=== PATIENT | male | born 1960 | race Caucasian/White ===

== ENCOUNTER 2018-12-10 01:55 | Inpatient (IN) | payer OTHER ==
[2018-12-10] VITALS (19 sets, daily range): BP systolic 98–141; BP diastolic 51–86
[~2018-12-10] VITALS: Ht 182.9 cm; Wt 122.6 kg
--- NOTE | 2018-12-10 02:15 | NUR ---
DR GIBBONS AT BEDSIDE FOR RSI-BRONCH. SEE E-MAR FOR MEDICATIONS GIVEN.
[2018-12-10 02:30] LABS: HEMATOCRIT 29.5 % (42.0-52.0); HEMOGLOBIN 9.4 gm/dL (14.0-18.0); MCH 31.5 pg (26.0-34.0); MCHC 31.8 g/dL (28.0-37.0); MCV 99.2 fL (80.0-100.0); PLATELET COUNT 341 thou/uL (150-400); RBC 2.97 mil/uL (4.50-6.00); RDW 17.3 % (10.5-14.5); WBC 26.5 thou/uL (4.0-11.0)
[2018-12-10 02:35] LABS: ANION GAP 7 mmol/L (7-16); BUN 20 mg/dL (7-18); CHLORIDE 102 mmol/L (98-107); CO2 29 mmol/L (21-32); CREATININE 0.6 mg/dL (0.7-1.3); GLUCOSE 195 mg/dL (74-106); POTASSIUM 5.1 mmol/L (3.5-5.1); SODIUM 138 mmol/L (136-145)
[2018-12-10 02:39] LABS: APTT 32.2 Seconds (24.5-32.8); INR 1.1; PROTIME 11.2 Seconds (9.3-11.4)
[2018-12-10 02:46] LABS: ALBUMIN 1.9 g/dL (3.4-5.0); MAGNESIUM 2.1 mg/dL (1.8-2.4); SGOT 28 U/L (15-37); SGPT 24 U/L (30-65); TOTAL BILIRUBIN 0.3 mg/dL (<0.1-1.0); TOTAL PROTEIN 7.6 g/dL (6.4-8.2); TROPONIN-I <0.06 ng/mL (<0.06)
[2018-12-10 03:02] LABS: ABSOLUTE NEUTROPHILS 20.9 thou/uL (1.4-8.2); NUCLEATED RBCS 1 /100WBC
[2018-12-10 03:04] LABS: ANISOCYTOSIS 1+; PLATELET ESTIMATE NORMAL; POLYCHROMASIA 2+
[2018-12-10 03:19] LABS: BE(vivo) -2.8 mmol/L (-2 to +3); HCO3 26.3 mmol/L (22.0-26.0); PCO2 70.7 mmHg (35.0-45.0); PO2 193.7 mmHg (80.0-100.0); pH 7.188 (7.360-7.450)
--- NOTE | 2018-12-10 06:15 | NUR ---
PATIENT ARRIVED TO THE FLOOR FROM THE ED AT APPROXIMATELY 0445. PATIENT NOTED TO BE SINUS TACHYCARDIC. PATIENT ON THE VENT VIA TRACH COLLAR WITH FIO2 AT 80% PATIENT IS AWAKE AND ORIENTED TO SELF AND PLACE AND TRIES TO CONVERSE WITH THIS RN. PATIENT NOTED TO HAVE A CVC IN THE RIGHT SUBCLAVIAN THAT WAS PRESENT UPON ADMISSION. THE DRESSING IS FILLED WITH BLOOD. ADDITIONALLY, THE TRACH (WHICH IS NEWLY PLACED) IS ALSO VERY BLOODY. ADMISSION ASSESSMENT COMPLETED BUT WAS UNABLE TO COMPLETE THE MED RECONCILIATION, ALLERGIES, AND MEDICAL HISTORY D/T NO FAMILY PRESENT AT BEDSIDE AND PATIENT UNABLE TO TALK.
[2018-12-10 07:01] LABS: BE(vivo) 5.9 mmol/L (-2 to +3); HCO3 30.7 mmol/L (22.0-26.0); PCO2 45.7 mmHg (35.0-45.0); PO2 115.4 mmHg (80.0-100.0); pH 7.445 (7.360-7.450); sO2 98.3 % (92.0-98.0)
[2018-12-10] MEDS ORDERED: ASPIR 8181 MG PER TUBE (07:24)
[2018-12-10] MEDS ORDERED: LIPITOR 20 MG T20 M1 PO (07:25)
[2018-12-10] MEDS ORDERED: COREG25 MG PO (07:26)
[2018-12-10] MEDS ORDERED: CLONIDINE0.1 PO (07:27)
[2018-12-10] MEDS ORDERED: DILTIAZEM HCL90 MG PO (07:29)
[2018-12-10] MEDS ORDERED: ENOXAPARIN150 MG/11 SUBQ (07:30)
[2018-12-10] MEDS ORDERED: IRON325 PER TUBE (07:36)
[2018-12-10] MEDS ORDERED: LEVOTHYROXINE100 MC1 IV (07:39)
[2018-12-10] MEDS ORDERED: MELATONIN5 M1 PO (07:40)
[2018-12-10] MEDS ORDERED: PAXIL10 MG PER TUBE (07:41)
[2018-12-10] MEDS ORDERED: ALDACTONE50 MG PER TUBE (07:42)
[2018-12-10] MEDS ORDERED: TRAZODONE HCL100 MG PER TUBE (07:43)
[2018-12-10] MEDS ORDERED: VITAMIN A & D113 G1 TOP (07:44)
[2018-12-10] MEDS ORDERED: COUMADIN7.5 MG PO (07:46)
[2018-12-10 08:11] LABS: HEMATOCRIT 24.4 % (42.0-52.0); HEMOGLOBIN 7.9 gm/dL (14.0-18.0)
[2018-12-10 08:24] LABS: URINE BILIRUBIN NEGATIVE (Negative); URINE BLOOD 1+ (Negative); URINE CLARITY CLEAR; URINE COLOR YELLOW; URINE GLUCOSE-RANDOM* NEGATIVE (Negative); URINE KETONES NEGATIVE (Negative); URINE LEUKOCYTES-REFLEX NEGATIVE (Negative); URINE NITRITE-REFLEX NEGATIVE (Negative); URINE PROTEIN (DIPSTICK) TRACE (Negative); URINE SPECIFIC GRAVITY 1.015 (1.005-1.035); URINE UROBILINOGEN 0.2 E.U./dl (0.2-1.0)
--- NOTE | 2018-12-10 08:25 | EKG ---
[address] [place] [address] ELECTROCARDIOGRAM REPORT Name: BRANT CAMACHO Room #: 245-P ADM IN M.R.#: [id number] ������������������ Admission: 12/10/18 ������������������ Attend Phys: Avery Borja MD Discharge: ������������������ Date of : 56 Report #: [id number] ����������������������������������������������������������������� [id number] THIS REPORT FOR: //name// [facility] ED Test Date: 2018-12-10 Test Time: 02:04:21 Pat Name: BRANT CAMACHO Department: Room: [facility] Gender: M Health Science Writer: yuki : 1960 Requested By: Alexis Tong Order Number: [id number] MD: Bob Peterson Measurements Intervals [place] Rate: 102 P: 68 SD: 177 QRS: -21 QRSD: 94 T: 97 QT: 339 QTc: 442 Interpretive Statements Sinus tachycardia Nonspecific T wave abnormality No previous ECG available for comparison Electronically Signed On 12-10-2018 8:25:25 CDT by Bob Peterson [email or web address] ��������������������������������������������� <ELECTRONICALLY SIGNED> ���������������������������������������� By: Bob Peterson MD, [facility] ��������������������������������������������� 12/10/18 0825 0204 0204 Bob Peterson MD, FACC /EPI
[2018-12-10 08:55] LABS: COARSE GRANULAR CASTS 0-3 Few /LPF (None Seen); FINE GRANULAR CASTS 4-10 Moderate /LPF (None Seen); HYALINE CASTS 4-10 Moderate /LPF (None Seen)
[2018-12-10 08:56] LABS: URINE RBC 3-10 Few /HPF (0-2); URINE WBC-REFLEX 6-15 Few /HPF (0-5)
[2018-12-10 08:57] LABS: CRYSTALS None Seen /LPF (None Seen); SQUAMOUS 0-3 Few /LPF (0-3)
--- NOTE | 2018-12-10 12:20 | NUR ---
WOUND CONSULT: PT. WAS SEEN TODAY BY DR. SCOTT AND MYSELF. PT. HAS A LARGE ABDOMEN WOUND FROM A SURGICAL PROCEDURE AT . PT. WAS TRANSFERED FROM TO [facility] YEST[facility] AND THEN [facility] SENT PT. HERE. PT. HAD A WOUND VAC DRESSING STILL IN PLACE BUT, WAS NOT CONNECTED TO SUCTION. WHEN DRESSING WAS REMOVED THIS SUPERVISOR SKI PRODUCTION AND DR. SCOTT DISCOVERED TWO FISTULAS IN THE RIGHT LQ OF THE WOUND BED THAT HAVE STOMATIZED. THE WOUND BED WAS FULL OF FECAL CONTAMINATION DUE TO THE PLACEMENT OF THE WOUND VAC. WOUND VAC DRESSING WAS CHANGED TODAY WITH AN OSTOMY APPLIANCE IN PLACE TO DIVERT THE FECAL MATTER. PT. TOLERATED PROCEDURE WELL. RECOMMENDATIONS: CONTINUE WITH WOUND VAC THERPAY. PT. AND STAFF NURSE WERE INSTRUCTED ON PLAN OF CARE.
[2018-12-10 15:33] LABS: HEMATOCRIT 24.6 % (42.0-52.0); HEMOGLOBIN 7.8 gm/dL (14.0-18.0)
--- NOTE | 2018-12-10 17:03 | NUR ---
CM ASSESSMENT: CASE OPENED FOR DC PLANNING. CLINICAL INFO REVIEWED. PT ADMITTED FROM [facility], ADMITTED THERE 12/09/18 FROM [facility] WHERE PT WAS HOSPITALIZED 5 WEEKS FOR ABD SURGERY COMPLICATED BY PERITONITIS, SEPSIS WITH RESP FAILURE, TRACH PLACEMENT. PT ON VENT, LARGE ABD WOUND WITH STOMATIZED FISTULAS X2. WOUND VAC DRSG CHANGED AFTER EVALS BY WOUND CARE TEAM TODAY. ADMITTED FOR SOA, CHEST PAIN AND TRACH BLEEDING. BRONCHED ON ADMIT. SERGIO HERE FROM [facility] TODAY AND UPDATED. REQUESTED [facility] SEEK [facility] AUTH FOR RETURN TO LTAC DR. PETTIT AND DR. LOCKWOOD FEEL PT STABLE FOR TRANSITION BACK TO LTAC. DC PLAN: RETURN TO [facility] PENDING [facility] INSURANCE AUTH. RN UPDATED.
--- NOTE | 2018-12-10 19:15 | NUR ---
SHIFT SUMMARY: PT PROGRESSED TODAY. BLEEDING RESOLVED AROUND TRACH, BLEEDING DECREASED FROM TRACH WHEN PT COUGHS ON BLOODY SECRETIONS OR WHEN PT IN LINE SUCTIONED. BLEEDING RESOLVED FROM CENTRAL LINE. NEW WOUND VAC, OSTOMY BAG PLACED TO STOMAS IN ABD WOUND- COMPLETED BY PAUL WALTERS RN. MORPHINE IV GIVEN SURROUNDING PLACEMENT OF WOUND VAC WITH RELIEF OF ABD PAIN. PT WRITING NOTES, ST, TOLERATING VENT, ADEQUATE URINE OUTPUT. DPOA CALLED TO INQUIRE REGARDING PT STATUS, UPDATED AND QUESTIONS ANSWERED. SEE ASSESSMENTS FOR DETAILS.
[2018-12-10 20:13] LABS: HEMATOCRIT 23.8 % (42.0-52.0); HEMOGLOBIN 7.8 gm/dL (14.0-18.0)
[2018-12-11] VITALS (22 sets, daily range): BP systolic 113–149; BP diastolic 62–78
[2018-12-11 02:02] LABS: HEMOGLOBIN 7.9 gm/dL (14.0-18.0); MCH 35.1 pg (26.0-34.0); MCHC 34.6 g/dL (28.0-37.0); MCV 101.5 fL (80.0-100.0); RBC 2.26 mil/uL (4.50-6.00); RDW 17.9 % (10.5-14.5)
[2018-12-11 02:13] LABS: WBC 10.3 thou/uL (4.0-11.0)
[2018-12-11 04:52] LABS: CALCIUM 8.2 mg/dL (8.5-10.1); CREATININE 0.5 mg/dL (0.7-1.3); MAGNESIUM 1.8 mg/dL (1.8-2.4)
--- NOTE | 2018-12-11 05:36 | NUR ---
ASSUMED CARE AT 1900. PATIENT AAOX3 AND IS ON THE VENTILATOR VIA TRACH COLLAR. TPN STARTED AT 1999. VS REMAINED STABLE THROUGHOUT THIS SHIFT AND NO DISTRESS NOTED. PATIENT PROGRESSING TOWARDS GOAL.
[2018-12-11 11:38] LABS: HEMATOCRIT 23.4 % (42.0-52.0); HEMOGLOBIN 7.6 gm/dL (14.0-18.0); MCH 31.8 pg (26.0-34.0); MCHC 32.6 g/dL (28.0-37.0); MCV 97.7 fL (80.0-100.0); RBC 2.4 mil/uL (4.50-6.00); RDW 17.1 % (10.5-14.5); WBC 10.5 thou/uL (4.0-11.0)
[2018-12-11 11:48] LABS: INR 1.1; PROTIME 11.4 Seconds (9.3-11.4)
--- NOTE | 2018-12-11 19:30 | NUR ---
SHIFT SUMMARY: PT PROGRESSING TODAY. ANTICOAGULATION- WT BASED HEPARIN STARTED. NO HEPARIN BOLUS PER DR. LOCKWOOD'S ORDER. CONTINUED HEMOPTIC THIN SECRETIONS FROM TRACH. NO BLEEDING AROUND TRACH. MORPHINE IV GIVEN X 1 FOR PAIN WITH DECREASE IN PAIN LEVEL. SR/ST, TOLERATING VENT, MEDS GIVEN PER DOBHOFF. SEE ASSESSMENTS FOR DETAILS.
[2018-12-12] VITALS (23 sets, daily range): BP systolic 103–145; BP diastolic 46–79
[2018-12-12 04:43] LABS: CALCIUM 8.3 mg/dL (8.5-10.1); CREATININE 0.5 mg/dL (0.7-1.3); MAGNESIUM 2.1 mg/dL (1.8-2.4); PHOSPHORUS 3.3 mg/dL (2.5-4.9)
[2018-12-12 04:48] LABS: HEMATOCRIT 22.8 % (42.0-52.0); HEMOGLOBIN 7.2 gm/dL (14.0-18.0); MCH 31.5 pg (26.0-34.0); MCHC 31.7 g/dL (28.0-37.0); MCV 99.3 fL (80.0-100.0); RBC 2.3 mil/uL (4.50-6.00); RDW 17.3 % (10.5-14.5)
--- NOTE | 2018-12-12 06:11 | NUR ---
Shift summary: No event tonight. Pt remains stable. No s/sx of any trach issue. Heparin gtt infusing per proocol. He reached therapeutic level this am. No s/sx of any actively bleeding indicates. All line remains inplace. Wound vac is continue to funcion propely. Continue to monitor any changes.
--- NOTE | 2018-12-12 19:15 | NUR ---
SHIFT SUMMARY: PT IMPROVING. HEPARIN FOR ANTICOAGULATION IS THERAPEUTIC. TRACH SECRETIONS THIN MIXED WITH SCANT BLOODY SECRETIONS. PASSIVE ROM BHARAT LOWER EXTREMITIES THEN ENCOURAGED PT TO PERFORM ACTIVE ROM ALL EXTREMITIES. PT SUCTIONING SELF ORALLY, WRITING NOTES, MOVING LOWER EXTREMITIES. MORPHINE GIVEN FOR ABD PAIN, SEE MARS. SR/ST, TOLERATING VENT, STRONG COUGH EFFORT, EFFECTIVELY RESEALED ABDOMINAL WOUND VAC DRESSING, OSTOMY WITH BILE DRAINAGE, MOREIRA WITH ADEQUATE URINE OUTPUT. FAMILY CALLED UPDATED. CLOSE FRIEND PRESENT TO SEE PT.
[2018-12-13] VITALS (17 sets, daily range): BP systolic 111–134; BP diastolic 61–73
[2018-12-13 04:33] LABS: HEMATOCRIT 22.5 % (42.0-52.0); HEMOGLOBIN 7.3 gm/dL (14.0-18.0); MCH 31.7 pg (26.0-34.0); MCHC 32.4 g/dL (28.0-37.0); MCV 97.7 fL (80.0-100.0); RBC 2.3 mil/uL (4.50-6.00); RDW 16.7 % (10.5-14.5); WBC 11.3 thou/uL (4.0-11.0)
[2018-12-13 04:44] LABS: CALCIUM 8.2 mg/dL (8.5-10.1); CREATININE 0.6 mg/dL (0.7-1.3); MAGNESIUM 1.9 mg/dL (1.8-2.4); PHOSPHORUS 3.5 mg/dL (2.5-4.9); POTASSIUM 4.6 mmol/L (3.5-5.1)
--- NOTE | 2018-12-13 07:35 | NUR ---
PATIENT IS SLOWLY PROGRESSING IN HIS CARE PLAN. VITAL SIGNS STABLE WITH PATIENT HAVING FREQUENT COMPLAINTS OF PAIN WHICH WERE TREATED EFFECTIVELY WITH MEDICATIONS AND REPOSITIONING. MOSTLY ORIENTED, PATIENT IS ABLE TO CALL APPROPRIATELY FOR REQUESTS. BREATHING STABLE ON VENTILATOR EVIDENCED BY READINGS ON CONTINUOUS SATURATION MONITOR. WOUND VAC/COLOSTOMY REINFORCED DUE TO LEAKING BOWEL MOVEMENT. PATIENT TURNED FREQUENTLY WITH ORAL AND SKIN CARE PROVIDED PER PROTOCOL. PATIENT APTT CAME BACK THIS MORNING NON THERAPUTIC SO BOLUS GIVEN WITH RATE INCREASED PER PROTOCOL. CONTINUE PLAN OF CARE.
--- NOTE | 2018-12-13 07:35 | HC ---
[facility] [place] [address] CONSULTATION Name: BRANT CAMACHO Room #: 245-P ADM IN M.R.#: [id number] Admission: 12/10/18 ������������������ Attend Phys: Avery Borja MD Discharge: ������������������ Date of : 56 Report #: [id number] THIS REPORT FOR: //name// CC: Jamari Ashby DATE OF SERVICE: 12/10/2018 CHIEF COMPLAINT: Surgical wound to the abdominal wall. HISTORY OF PRESENT ILLNESS: This is a 58-year-old male patient who was admitted to [facility] Intensive Care Unit from [facility] for shortness of breath and chest pain. He was just hospitalized at [facility] where he had been hospitalized since mid October. There are no records from available. He is noted that he has had a ventral hernia repair and had complications of sepsis, peritonitis, intraabdominal abscess and enterocutaneous fistulae with respiratory failure. He is status post tracheostomy. He has a surgical wound to his abdominal wall. There has been some sort of a skin substitute type grafting present and has a wound VAC in place. The patient is not able to provide any information about himself at this time. PAST MEDICAL HISTORY: Positive for an incarcerated ventral hernia, status post repair with multiple complications including intraabdominal abscess, peritonitis and enterocutaneous fistulae. He has respiratory failure requiring mechanical ventilation and tracheostomy on 12/06/2018. He has a history of mitral valve replacement and atrial fibrillation. SOCIAL HISTORY: Unknown. FAMILY HISTORY: Unknown. MEDICATIONS: Include aspirin, Lipitor, Coreg, clonidine, Cardizem, Lovenox, iron, Synthroid, melatonin, Paxil, Aldactone, trazodone, vitamin A and D, and Coumadin. ALLERGIES: None. REVIEW OF SYSTEMS: Unobtainable due to the patient's condition. PHYSICAL EXAMINATION: VITAL SIGNS: At this time include temperature 37.0, pulse 127, respiratory rate 26, blood pressure 124/66. GENERAL: This is a chronically ill-appearing male patient who appears to be somewhat responsive, does open his eyes, does attempt to mouth words, although I cannot understand them. [facility] [address] [place] [address] CONSULTATION Name: BRANT CAMACHO Room #: 245-P ADM IN M.R.#: [id number] Admission: 12/10/18 ������������������ Attend Phys: Avery Borja MD Discharge: ������������������ Date of : 56 Report #: [id number] HEENT: Head normocephalic. Extraocular movements are intact. Nose is clear. Throat demonstrates tracheostomy. There is moderate bleeding around the trach site. LUNGS: Diminished. HEART: Regular rhythm. ABDOMEN: Distended and obese. There is a large surgical wound to the abdominal wall. We have removed the wound VAC. There is granulation in the periphery. There is skin substitute across the mid portion of the abdominal wound and in the lower portion of the abdominal wound, there are two stomatized enterocutaneous fistulae. It is not overtly infected and abdominal contents are not exposed. EXTREMITIES: With 2+ edema. No breakdown noted. NEUROLOGIC: The patient appears to be moving symmetrically. LABORATORY DATA: Includes sodium 138, potassium 5.1, chloride 102, BUN 20, creatinine 0.6, glucose 195, total protein is 7.6, albumin is very low at 1.9. White blood cell count is 26.5 with a hemoglobin of 9.4. CLINICAL IMPRESSION: 1. Surgical wound in the abdominal wall following repair of the incarcerated ventral hernia, now status post abdominal abscess and development of enterocutaneous fistulae. 2. Respiratory failure, requiring tracheostomy. 3. Morbid obesity. 4. Hyperglycemia. 5. Severe protein-calorie malnutrition, albumin 1.9. 6. Acute on chronic respiratory failure, requiring mechanical ventilation. 7. Congestive heart failure per history. RECOMMENDATIONS: At this point in time, the patient may need to be in a low air loss mattress, need to be turned and repositioned every 2 hours and will recommend PRAFO boots to both lower extremities. We will replace the wound VAC. We have used fistula cones to isolate the fistulae and then have used white foam over the skin substitute and then black foam over that and then the granulation tissue on the periphery. We will set this to [address] an ostomy bag over the diverted fistulae. The enterocutaneous fistulae are well stomatized, therefore there is no expectation that these would resolve spontaneously and will only resolve at some point in the future when he is stable and appropriate for surgical intervention more than likely that would be 12 months following he had the original surgery. We will recommend continuation medications. He will need aggressive nutritional support to support wound healing and maintain glycemic control. [address] [address] CONSULTATION Name: BRANT CAMACHO Room #: 245-P ADM IN M.R.#: [id number] Admission: 12/10/18 ������������������ Attend Phys: Avery Borja MD Discharge: ������������������ Date of : 56 Report #: [id number] I appreciate being asked to see him in consultation. ��������������������������������������������� <ELECTRONICALLY SIGNED> ���������������������������������������� By: Marc Hebert MD ��������������������������������������������� 12/13/18 0735 1734 1345 Marc Hebert MD /nt
[2018-12-13 09:25] LABS: HEMOGLOBIN 6.9 gm/dL (14.0-18.0)
[2018-12-13 09:26] LABS: HEMATOCRIT 21.1 % (42.0-52.0)
--- NOTE | 2018-12-13 11:18 | NUR ---
WOUND FOLLOW UP: PT. WAS SEEN TODAY BY DR. SCOTT AND MYSELF. PT. WOUND VAC DRESSING AND OSTOMY APPLIANCE WAS CHANGED TODAY BY WOUND CARE. PT. WOUND BED IS SHOWING SIGNS OF GRANULATION TISSUE AROUND THE EDGES. THERE IS NO ODOR PRESENT IN THE WOUND BED AND FECAL MATTER IS BEING DIVERTED FROM THE FISSTULAS INTO THE OSTOMY APPLIANCE. PT. TOLERATED THIS PROCEDURE WELL. RECOMMENDATIONS: CONTINUE WITH CURRENT PLAN OF CARE. PT. AND STAFF NURSE WERE INSTRUCTED ON PLAN OF CARE.
--- NOTE | 2018-12-13 11:39 | HC ---
[facility] [place] [address] CONSULTATION Name: BRANT CAMACHO Room #: 245-P ADM IN M.R.#: [id number] Admission: 12/10/18 ������������������ Attend Phys: Avery Borja MD Discharge: ������������������ Date of : 56 Report #: [id number] THIS REPORT FOR: //name// CC: Jamari Ashby DATE OF SERVICE: 12/10/2018 REASON FOR CONSULTATION: Peritonitis, respiratory failure. HISTORY OF PRESENT ILLNESS: The patient is a 58-year-old initially treated at [facility] for hernia repair due to incarcerated ventral hernia and sepsis. During that hospital stay, he developed bilateral pleural effusions and perihepatic fluid collection. He underwent right thoracentesis along with intraabdominal abscess drainage on 11/15/2018. Fluid analysis revealed right lung empyema as well as intra-abdominal abscess. He subsequently required reintubation and ultimately tracheostomy. He had had chest tubes in place, intraabdominal tube in place. He had a large ventral wound and development of fistula. I do not have his microbiology reports, but the patient was transferred on micafungin due to his intra-abdominal collection. On 12/09/2018, he was transferred to [facility] for ventilatory weaning. At that time, he had a tracheostomy and NG tube for feeding and wound care for his abdominal wound and fistula. He had a right IJ tunneled catheter and an indwelling Sung catheter. Yesterday, he had acute shortness of breath and was unable to ventilate. He was transferred emergently to [facility] Emergency Room where he underwent emergent bronchoscopy noting granulation tissue formation at the distal aspect of his tracheostomy. This was occluding the airway. Distal to this obstruction, his airways were fairly clear. He underwent debridement of this tissue and improved. He is now on the ventilator and stable. He does remain tachycardic and the blood pressure was stable. He was alert. REVIEW OF SYSTEMS: Ten-point review of systems was negative other than what has been described above. His pain is under reasonable control. ALLERGIES: None known. MEDICATIONS: As noted on his MAR including micafungin. PAST MEDICAL HISTORY: Incarcerated ventral hernia repair, intraabdominal abscess with peritonitis, right lung empyema, mitral valve replacement, atrial fibrillation. SOCIAL HISTORY: Not yet obtained. [facility] [address] [place] [address] CONSULTATION Name: BRANT CAMACHO Room #: 245-P [facility] IN M.R.#: [id number] Admission: 12/10/18 ������������������ Attend Phys: Avery Borja MD Discharge: ������������������ Date of : 56 Report #: [id number] PHYSICAL EXAMINATION: VITAL SIGNS: Afebrile, blood pressure 125/61, heart rate 115. GENERAL: He was alert and cooperative. SKIN: With several ecchymoses, but no other rash or decubitus. No palpable adenopathy. HEENT: Eyes without scleral icterus. Mouth without mucositis. NG tube, Dobbhoff in place on the left. NECK: Supple with tracheostomy, some bleeding from around the trach. Right IJ tunneled catheter with some bleeding at the site. LUNGS: Coarse bilaterally. CARDIOVASCULAR: Heart was regular, without murmur, gallop or rub. Poinsett valve sounds audible. ABDOMEN: Moderately distended. He had a large ventral wound with a wound VAC in place. Had a bag over the distal aspect where there was evidence of fistula. I did review the images obtained earlier this morning. No appreciable masses. No hepatosplenomegaly palpable. External genitalia without mass or lesion with indwelling Sung catheter. RECTAL: Not performed. EXTREMITIES: No clubbing or cyanosis. 2+ peripheral edema evident. Cranial nerves intact. Strength in his upper and lower extremities was diminished bilaterally. Sensation intact. LABORATORY STUDIES: Reviewed. X-rays reviewed. Bronchoscopy report reviewed. IMPRESSION: A 58-year-old with: 1. Respiratory failure and acute obstruction of his trachea, now relieved. This was due to granulation tissue formation. He has respiratory failure, peritonitis and intra-abdominal abscess along with right chest empyema following complications from ventral hernia repair with incarcerated bowel. I do not have the microbiology reports today. It appears that he was on Zosyn and micafungin prior to his transfer, but currently on micafungin. 2. Mitral valve repair. 3. History of congestive heart failure. 4. History of anemia. RECOMMENDATION: We will go back to Zosyn and micafungin combination as we obtain outside records from [facility]. Continue full ICU support. This will include respiratory care and wound care. The patient is anticoagulated for his mitral valve replacement. He is having some oozing from his tracheostomy and his tunneled catheter. We will make adjustments with his antibiotics and determine duration of antibiotics following further information from [facility]. I have discussed with nursing staff at the bedside. ��������������������������������������������� <ELECTRONICALLY SIGNED> ���������������������������������������� By: Alexis Guzman MD ��������������������������������������������� 12/13/18 1139 [id number] Alexis Guzman MD /nt
[2018-12-13] MEDS ORDERED: ZOSYN 3.3753.375 GM IV (13:15)
[2018-12-13] MEDS ORDERED: MYCAMINE100 MG IV (13:16)
--- NOTE | 2018-12-13 13:45 | NUR ---
[facility] INSURANCE AUTH NOTIFICATION FROM [facility] AROUND 1230. SPOKE WITH PT ABOUT TRANSITION BACK TO [facility] TODAY AND REVIEWED CHOICE FORM AND OPTIONS. PT IS AGREEABLE TO RETURN TO [facility] TODAY. DR. LOCKWOOD FEELS PT NEEDS VENT FOR TRANSPORT SO [facility] TO TRANSPORT AT 3 PM. VENT SETTINGS PROVIDED TO [facility]. DC DONOR RELATIONS OFFICER TO FAX DC ORDERS TO [facility]. CHART COPIED AND RN GIVEN # FOR REPORT. PT'S EMERGENCY CONTACT/FRIEND SHEILA THOMAS UPDATED BY PHONE.
--- NOTE | 2018-12-13 14:28 | NUR ---
PT. DISCHARGING TODAY TO [facility]. FAXED DC ORDERS/SUMMARY TO FACILITY. NOTIFIED SERGIO RANGEL LIASON OF TRANSPORT ARRANGED WITH [facility] AT 1500 TODAY. FAMILY NOTIFIED PER . UNIT NOTIFIED AND CHART COPY PER US. RN TO CALL REPORT TO:[phone].
--- NOTE | 2018-12-13 14:36 | NUR ---
REPORT CALLED TO "LUI" AT [facility]. .
--- NOTE | 2018-12-13 15:18 | NUR ---
PATIENT ALERT AND ORIENTED X4, SINUS RHYTHM ON STORE GROUP MANAGER. ON VENTILATOR 30%FIO2. LEFT NARE HOV PRESENT. MOREIRA PATENT AND DRAINING. RIGHT SUBCLAVIAN DOUBLE LUMEN WITH TPN @105 ML/HR. WOUND VAC PRESENT. OSTOMY INTACT. BLOOD SUGAR MONITORED. REPORT GIVEN TO AMBULANCE STAFF, NO SINGS OF ACUTE DISTRESS NOTED AT THIS TIME. PATIENT TRANSFERRED TO [facility].
== END 2018-12-13 15:20 | DRG 166 ==
LOC: ER 01:55 → EROBS 03:10 → ICU 03:10
PROVIDERS: Emergency Medicine; Nurse Practitioner Acute Care; ADMIT Internal Medicine
PROC: 0BJ08ZZ Inspection of Tracheobronchial Tree, Via Natural or Artificial Opening Endoscopic (ICD-10-PCS; principal; 2018-12-10)
PROC: 5A1945Z Respiratory Ventilation, 24-96 Consecutive Hours (ICD-10-PCS; principal; 2018-12-10)
PROC: 0BB18ZZ Excision of Trachea, Via Natural or Artificial Opening Endoscopic (ICD-10-PCS; principal; 2018-12-10)
DX: J95.01 Hemorrhage from tracheostomy stoma (principal); E43 Unspecified severe protein-calorie malnutrition; J96.21 Acute and chronic respiratory failure with hypoxia; J96.22 Acute and chronic respiratory failure with hypercapnia; J86.9 Pyothorax without fistula; T81.43XA Infection following a procedure, organ and space surgical site, initial encounter; D62 Acute posthemorrhagic anemia; L02.211 Cutaneous abscess of abdominal wall; K31.6 Fistula of stomach and duodenum; I48.91 Unspecified atrial fibrillation; Y83.8 Other surgical procedures as the cause of abnormal reaction of the patient, or of later complication, without mention of misadventure at the time of the procedure; E11.65 Type 2 diabetes mellitus with hyperglycemia; I34.0 Nonrheumatic mitral (valve) insufficiency; D72.829 Elevated white blood cell count, unspecified; E66.01 Morbid (severe) obesity due to excess calories; I50.9 Heart failure, unspecified; I11.0 Hypertensive heart disease with heart failure; Z79.82 Long term (current) use of aspirin; Z79.899 Other long term (current) drug therapy; Z90.49 Acquired absence of other specified parts of digestive tract; Z79.01 Long term (current) use of anticoagulants; Z68.36 Body mass index [BMI] 36.0-36.9, adult; Y92.89 Other specified places as the place of occurrence of the external cause; Z87.828 Personal history of other (healed) physical injury and trauma
CPT/HCPCS: 10078

== ENCOUNTER 2018-12-20 04:09 | Inpatient (IN) | payer OTHER ==
[2018-12-20] VITALS (32 sets, daily range): BP systolic 108–171; BP diastolic 51–86
[~2018-12-20] VITALS: Ht 182.9 cm; Wt 117.6 kg
[~2018-12-20 04:09] MED LIST: ALDACTONE50 MG PER TUBE; ASPIR 8181 MG PER TUBE; CLONIDINE0.1 PO; COREG25 MG PO; COUMADIN 5 MG TA5 M1 PO; DILTIAZEM HCL90 MG PO; ENOXAPARIN100 MG/11 SUBQ; FERROUS SU220 MG/52 PER TUBE; LIPITOR 20 MG T20 M1 PO; MELATONIN5 M1 PO; MYCAMINE100 MG IV; PAXIL10 MG PER TUBE; SYNTHROID100 MC1 PER TUBE; TRAZODONE HCL100 MG PER TUBE; VITAMIN A & D113 G1 TOP; ZOSYN 3.3753.375 GM IV
[2018-12-20 04:56] LABS: HEMATOCRIT 29.6 % (42.0-52.0); HEMOGLOBIN 9.6 gm/dL (14.0-18.0); MCH 31.2 pg (26.0-34.0); MCHC 32.6 g/dL (28.0-37.0); MCV 95.7 fL (80.0-100.0); RBC 3.09 mil/uL (4.50-6.00); RDW 17.3 % (10.5-14.5); WBC 14.9 thou/uL (4.0-11.0)
[2018-12-20 05:05] LABS: CALCIUM 8.8 mg/dL (8.5-10.1); CREATININE 0.4 mg/dL (0.7-1.3); POTASSIUM 4.2 mmol/L (3.5-5.1)
[2018-12-20 05:08] LABS: APTT 29.9 Seconds (24.5-32.8); INR 1.3; PROTIME 13.3 Seconds (9.3-11.4)
--- NOTE | 2018-12-20 08:12 | NUR ---
REPORT RECEIVED FROM MARCUS SED SPECIAL EDUCATION TEACHER RN. MARCUS STATED THE PT ARRIVED AT 0630. OBSERVED BLOOD SOAKED ABDS ON LOWER PART OF ABDOMINAL WOUND WITH ABDOMINAL BINDER IN PLACE. PT ALERT TO PERSON, PLACE, RESTING QUIETLY WHEN UNDISTURBED. DENIES PAIN, ST, 119-125, SHILEY TRACH 8, T-PIECE WITH 02 35%, RR-24, WHITE THICK FROTHY SPUTUM PER T-PIECE, ABDOMEN WITH BLOOD, BILE AND CLOTS DRAINING FROM BELOW LOWER PART OF ABDOMINAL BINDER, BS HYPO, MOREIRA DRAINING DANIEL URINE. CALL IMMEDIATELY PLACED TO DR. FLORES AND HE WAS IMMEDIATELY AT BEDSIDE. UPON OBSERVING WOUND SEVERAL CLUMPS OF LARGE CLOTS PRESENT. PRESSURE HELD 5 MIN, NUMEROUS ABDS APPLIED AND ABD BINDER REPLACED. PT TO TRANSFER TO ICU.
[2018-12-20 09:15] LABS: HEMATOCRIT 29.9 % (42.0-52.0); HEMOGLOBIN 9.7 gm/dL (14.0-18.0)
--- NOTE | 2018-12-20 09:35 | NUR ---
HGB/HCT, T&C DRAWN. [address] ZAPATA PER PHONE, DR. ZAPATA PRESENT. 909 DR. DEAN VALERO, SURGEON NOTIFIED OF PT. UPDATED ON PT CONDITION- ABDOMINAL BLEEDING WITH CLOTS, WOUND REPACKED WITH ABDS, ABD BINDER INTACT. 919 REPORT TO JENSEN, CUSTOMS BROKER. 6955 PT TRANSFERRED TO ICU #[id number] PER BED WITH MONITOR AND 02. ACCOMPANIED BY TREMAYNE HERNADEZ.
[2018-12-20] MEDS ORDERED: ALBUTEROL2.5 MG/31 INH (11:55)
[2018-12-20] MEDS ORDERED: ERAXIS IV (11:56)
[2018-12-20] MEDS ORDERED: CIPRO500 MG PO (11:57)
[2018-12-20] MEDS ORDERED: INTRALIPID250 ML IVPB (11:58)
[2018-12-20] MEDS ORDERED: HUMULIN N100 UNIT/1 SUBQ (12:02)
[2018-12-20] MEDS ORDERED: PREVACID 15 MG15 M4 PO (12:03)
[2018-12-20] MEDS ORDERED: SODIUM CHLORID500 ML IV (12:05)
[2018-12-20] MEDS ORDERED: ZOSYN 3.3753.375 GM IV (12:05)
[2018-12-20] MEDS ORDERED: CLINIMIX E IV (12:08)
[2018-12-20] MEDS ORDERED: ACETAMINOP160 MG/5 M PER TUBE (12:09)
[2018-12-20] MEDS ORDERED: ZOFRAN ODT4 MG DISSOLVE (12:10)
[2018-12-20] MEDS ORDERED: OXYCODONE HCL 55 MG PO (12:10)
[2018-12-20] MEDS ORDERED: LORAZEPAM 22 MG/1 ML IV PUSH (12:10)
--- NOTE | 2018-12-20 12:43 | NUR ---
SUMMARY THUS FAR-RECEIVED PT FROM 3W ~1000. IN SHORTLY THEREAFTER. ABD WOUND IRRIGATED,CAUTERIZED,SUTURED BY & LEFT OPEN.VASOLINE GAUZE,DSD'S & ABD'S W BINDER UNTIL WOUND VAC ABLE TO BE PLACED. PT MED W MORPHINE FOR PAIN AFTER.PCXR,KUB DONE TO CK PLACEMENTS OF LINES,F/U.--VW
--- NOTE | 2018-12-20 12:58 | NUR ---
PT'S DEVIN,SHEILA THOMAS, CALLED & INFORMED OF PT'S ADMISSION TO HOSPITAL,EVENTS & POC. PERMIT FOR BLOOD OBTAINED.--VW
[2018-12-20 13:05] LABS: URINE BLOOD 3+ (Negative); URINE CLARITY CLOUDY; URINE COLOR YELLOW; URINE GLUCOSE-RANDOM* NEGATIVE (Negative); URINE KETONES NEGATIVE (Negative); URINE LEUKOCYTES-REFLEX TRACE (Negative); URINE NITRITE-REFLEX NEGATIVE (Negative); URINE PROTEIN (DIPSTICK) 1+ (Negative); URINE SPECIFIC GRAVITY >= 1.030 (1.005-1.035); URINE UROBILINOGEN 0.2 E.U./dl (0.2-1.0)
[2018-12-20 13:07] LABS: ICTOTEST (BILI CONFIRMATORY) Negative (Negative); URINE BILIRUBIN NEGATIVE (Negative)
--- NOTE | 2018-12-20 13:12 | NUR ---
MESSAGE LEFT FOR JASMIN,TOP HAT BODY MAKER RE:CONSULT & NEED FOR WOUND VAC PLACEMENT.--VW
[2018-12-20 13:20] LABS: BACTERIA-REFLEX 1-9 Few /HPF (None Seen); CASTS None Seen /LPF (None Seen); CRYSTALS None Seen /LPF (None Seen); SQUAMOUS 0-3 Few /LPF (0-3); URINE RBC >20 Many /HPF (0-2); URINE WBC-REFLEX 6-15 Few /HPF (0-5); YEAST-REFLEX Present (None Seen)
--- NOTE | 2018-12-20 14:58 | NUR ---
CXR VIEWED BR DR GIBBONS VERIFIED RSC LINE WNL, REPORT FRON XRAY STILL NOT READ. LINE RELEASED FOR IMMEDIATE USE TO JENSEN MCKEON
--- NOTE | 2018-12-20 15:20 | NUR ---
SPOKE W EARLIER-ORDERS NOTED. IN TO SEE. PAUL,TOP COATER,PAGED OVERHEAD.PT AWAKE,WRITING NOTES,DENIES PAIN.ASKING TO STAY ON BACK UNTIL WOUND-VAC PLACED.KENROY & JUNG REMOVED W/O DIFFICULTY. SPEECH TO SEE IN AM.HEMODYNAMICS STABLE.--VW
--- NOTE | 2018-12-20 18:30 | NUR ---
UPDATED (PT KNOWN TO HIM).ABD JOHNSON'Emiliana,BINDER IN PLACE.PT SEEMS MUCH MORE COMF & RELAXED THAN EARLIER.VERY PLEASANT WHEN AWAKE.NO PROBLEMS.--VW
--- NOTE | 2018-12-20 19:49 | NUR ---
WOUND CONSULT: PT. WAS SEEN TODAY BY DR. SCOTT AND MYSELF. PT. IS WELL KNOWN TO THE WOUND CARE TEAM. PT. HAS A LARGE ABDOMEN WOUND THAT HAS DEHISED WITH A SKIN SUB AND 2 STOMATIZED FISTULAS IN THE RIGHT LQ OF THE WOUND. PT. ROWENA-EDGES ARE EXTREMILY MACERATED AT THIS TIME. WOUND VAC WILL HAVE TO BE HELD UNTIL WE CAN TREAT THE MACERATION. RECOMMENDATIONS: WOUND CARE TO ABDOMEN: GENTLY CLEANSE WITH WOUND CLEANSER OR NORMAL SALINE, APPLY GENTAMYCIN TO THE WOUND BED, COVER WITH XEROFORM, ABD, SECURE WITH TAPE. COMPLETE CARES DAILY. PT. AND STAFF NURSE WERE INSTRUCTED ON PLAN OF CARE.
[2018-12-21] VITALS (23 sets, daily range): BP systolic 107–136; BP diastolic 65–86
--- NOTE | 2018-12-21 04:24 | NUR ---
ASSUMED CARE OF PT. AT 1900. PT. IS ALERT AND OREINTED X4. PT. IS TRACHED, BUT CAN COMMUNICATE BY MOUTHING WORDS AND WRITING. PT. DENIES PAIN DURING ASSESSMENTS, BUT WILL REQUEST MORPHINE FOR DRESSING CHANGES. PT. IS SINUS TACHYCARDIC ON THE MONITOR WITH PACS AND PVCS, BUT REMIANS HEMODYNAMICALLY STABLE. WOUND CHANGES X3 THROUGHOUT SHIFT, PT. TOLERATES PROCEDURE. SEE WOUND DOCUMENTATION. PT. IS Q2 SUCTIONED WITH MEDIUM AMOUNTS OF THIN WHITE SECRETIONS FROM TRACH WITH GOOD COUGH EFFORT. PT. CAN COMMUNICATE NEEDS WELL AND IS RESTING AT THIS TIME. SPEECH TO SEE PT. THIS AM TO SEE IF PT. CAN START ORAL MEDICATIONS. PLAN OF CARE IS TO CONTINUE TO MONITOR HEMODYNAMIC STABILITY, MAINTAIN OXYGENATION, AND TO WOUND VAC WITH WOUND RN IN THE AM SHIFT. WILL CONTINUE TO MONITOR.
[2018-12-21 05:25] LABS: ABSOLUTE NEUTROPHILS 10.4 thou/uL (1.4-8.2); BASOPHILS 0.3 % (0.0-2.0); EOSINOPHILS 0.9 % (0.0-3.0); HEMATOCRIT 27.1 % (42.0-52.0); HEMOGLOBIN 8.7 gm/dL (14.0-18.0); LYMPHOCYTES 6.9 % (24.0-44.0); MCH 30.9 pg (26.0-34.0); MCHC 32.3 g/dL (28.0-37.0); MCV 95.7 fL (80.0-100.0); MONOCYTES 10.4 % (1.0-8.0); PLATELET COUNT 301 thou/uL (150-400); POLYS 81.5 % (36.0-66.0); RBC 2.83 mil/uL (4.50-6.00); RDW 17.1 % (10.5-14.5); WBC 12.8 thou/uL (4.0-11.0)
[2018-12-21 05:40] LABS: ALBUMIN 1.9 g/dL (3.4-5.0); CALCIUM 8.3 mg/dL (8.5-10.1); CREATININE 0.4 mg/dL (0.7-1.3); MAGNESIUM 1.4 mg/dL (1.8-2.4); PHOSPHORUS 3.2 mg/dL (2.5-4.9); TOTAL BILIRUBIN 0.2 mg/dL (<0.1-1.0)
--- NOTE | 2018-12-21 09:10 | NUR ---
Recommend change tpn to 3 in 1 of 15% dex, 6.25%AA and 2.9% lipids at 105ml/hr. Pharmacy will be managing tpn.
--- NOTE | 2018-12-21 13:44 | NUR ---
WOUND FOLLOW UP: PT. WAS SEEN TODAY BY DR. SCOTT AND MYSELF. DR. SCOTT PLACED A 18 BOLIVIAN RED LUI WAS PLACED INTO FISTULA FOR FISTULA MANAGEMENT. HYDROGEL WAS ADDED TO AID IN SOFTENING THE SKIN SUB. RECOMMENDATIONS: CONTINUE WITH CURRENT PLAN OF CARE. PT. AND STAFF NURSE WERE INSTRUCTED ON PLAN OF CARE.
--- NOTE | 2018-12-21 19:57 | NUR ---
PT ALERT AND ORIENTED X4. DENIES PAIN. VSS. FREQUENT ORAL AND TRACH SUCTIONING. COPIOUS AMOUNTS OF WHITE FROTHY SPUTUM. WOUND CARE DONE X2 TODAY. SEE WOUND DOCUMENTATION. LEVEL VIAL CURVATURE GAUGER/ HERE AND RED LUI CATH PLACED INTO FISTULA. PT'S COUSIN/DPOA HERE THIS AFTERNOON AND UPDATED. REPORT GIVEN TO SKIDDER RUNNER RN.
[2018-12-21 20:55] LABS: INR 1.2; PROTIME 12.1 Seconds (9.3-11.4)
[2018-12-22] VITALS (15 sets, daily range): BP systolic 98–144; BP diastolic 61–82
[2018-12-22 06:04] LABS: HEMATOCRIT 25.7 % (42.0-52.0); HEMOGLOBIN 8.5 gm/dL (14.0-18.0); MCH 31.6 pg (26.0-34.0); MCHC 33.2 g/dL (28.0-37.0); MCV 95.2 fL (80.0-100.0); RBC 2.7 mil/uL (4.50-6.00); RDW 16.6 % (10.5-14.5); WBC 10.7 thou/uL (4.0-11.0)
[2018-12-22 06:17] LABS: INR 1.1; PROTIME 11.4 Seconds (9.3-11.4)
[2018-12-22 06:18] LABS: CALCIUM 8.5 mg/dL (8.5-10.1); CREATININE 0.4 mg/dL (0.7-1.3); POTASSIUM 3.6 mmol/L (3.5-5.1)
[2018-12-22 06:24] LABS: PHOSPHORUS 2.8 mg/dL (2.5-4.9)
--- NOTE | 2018-12-22 06:32 | NUR ---
OVER THE SHIFT FREQUENT SUCTIONING REQUIRED. PT ASK FOR ANXIETY MEDICATION SOONER THAN THE Q6, ADDRESSED ISSUE AND GOT CHANGED TO Q4. PT ABDOMINAL WOUND STILL LEAKING. WAITING FOR A ABDOMINAL BINDER FOR CS TO REPLACE DUE TO OLD ONE IS SOILED. INTERDRY TO ROWENA AREA. FOLLOWING POC WITH IVPB ANTIBIOTICS AND TPN. PT IS SOMETIMES VERY NEEDY AND EXTRA TIME IS NEEDED. HOURLY ROUNDING.
--- NOTE | 2018-12-22 11:45 | HC ---
[facility] [place] [address] CONSULTATION Name: BRANT CAMACHO Room #: 249-P ADM IN M.R.#: [id number] Admission: 12/20/18 ������������������ Attend Phys: Viet Bonilla MD Discharge: ������������������ Date of : 56 Report #: [id number] THIS REPORT FOR: //name// CC: FAM unknown Viet Bonilla INFECTIOUS DISEASES CONSULTATION REASON FOR CONSULTATION: I was asked to evaluate the patient concerning peritonitis, intra-abdominal abscess and enterocutaneous fistula with persistent leukocytosis and abdominal wall wound hemorrhage. HISTORY OF PRESENT ILLNESS: The patient was a 58-year-old who was hospitalized initially at [facility] for treatment of incarcerated hernia that was complicated by intra-abdominal abscess and development of enterocutaneous fistula. They prolonged hospitalization and then transferred to [facility] for ventilatory weaning. Subsequently, had obstruction of his tracheostomy due to granulation tissue formation. Last hospital stay on 12/10 through 12/13. He was treated with Zosyn, micafungin and corticosteroids. He was discharged back to [facility], only to have development of abdominal wound hemorrhage and required an admission to the Intensive Care Unit. He has had cauterization of the bleeding spots. This is involving his enterocutaneous fistula of his abdominal wound following ventral hernia repair. Wound care service and General Surgery had been dealing with this over the last several days. He has stabilized. He is off the ventilator and doing reasonably well from a respiratory standpoint. Cultures from his last hospital stay were negative and this included blood, urine and sputum. He has remained afebrile and hemodynamically stable. His pain is reasonably controlled. Respiratory status remained stable. He has had a moderate amount of output from his enterocutaneous fistula. REVIEW OF SYSTEMS: A 10-point review of systems was negative other than what is described above. ALLERGIES: None. MEDICATIONS: As noted on his MAR including Eraxis and Zosyn. PAST MEDICAL HISTORY: Incarcerated ventral hernia, intra-abdominal abscess, peritonitis, right lung empyema, mitral valve replacement with mechanical valve, paroxysmal atrial fibrillation, congestive heart failure, diabetes, hyperlipidemia, hypothyroidism, hypertension. FAMILY HISTORY: Noncontributory. SOCIAL HISTORY: Nonsmoker, no significant alcohol intake. [facility] [address] [place] [address] CONSULTATION Name: BRANT CAMACHO Room #: 249-P [facility] IN M.R.#: [id number] Admission: 12/20/18 ������������������ Attend Phys: Viet Bonilla MD Discharge: ������������������ Date of : 56 Report #: [id number] PHYSICAL EXAMINATION: VITAL SIGNS: He is afebrile, hemodynamically stable. He was tachycardic. GENERAL: He is alert and cooperative. He is obese. SKIN: Without rash. No palpable adenopathy. EYES: Without scleral icterus. MOUTH: Without mucositis. NECK: Supple with tracheostomy. No erythema or purulent drainage. LUNGS: Coarse bilaterally. HEART: Regular, without murmur, gallop or rub. He had crisp valve sounds. ABDOMEN: Distended. He had a large ventral wound, which was dressed. The enterocutaneous fistula had bilious output from the lower aspect of his wound. EXTREMITIES: Without clubbing or cyanosis. He had 1+ peripheral edema. IV site of right subclavian region was without erythema or drainage. Cranial nerves intact. Strength in upper and lower extremities was symmetric and mildly decreased. LABORATORY STUDIES: Sodium 134, potassium 4, bicarb 28, creatinine 0.4, bilirubin 0.2, alk phos 98, ALT 35. Hemoglobin 8.7; WBC 12.8; platelet count 301,000. Differential unremarkable. Chest x-ray: Left basilar atelectasis with small effusion. Urinalysis: Many rbc's, a few wbc's, yeast and bacteria present. IMPRESSION: A 58-year-old with respiratory failure, complicated abdominal infection with abdominal ventral hernia wound and enterocutaneous fistula. Completing a treatment course for peritonitis and intra-abdominal abscess. Has respiratory failure and left lower lobe atelectasis and infiltrate. Has persistent leukocytosis. Has abdominal wall hemorrhage in the setting of anticoagulation for his mitral valve replacement. 1. Diabetes. 2. Persistent leukocytosis, likely due to a combination of the above. RECOMMENDATION: We will continue Zosyn and switch anidulafungin to fluconazole for better urinary tract coverage. Continue full support. Anticipate transfer back to [facility] in the near future. I have discussed with nursing. Pulmonary Medicine and family at the bedside. ��������������������������������������������� <ELECTRONICALLY SIGNED> ���������������������������������������� By: Alexis Guzman MD ��������������������������������������������� 12/22/18 [id number] Alexis Guzman MD /nt
--- NOTE | 2018-12-22 13:28 | NUR ---
Case opened to follow for dc planning. Pt is currently in ICU. He is alert and able to write short messages to communicate his basic needs. The pt was admitted from [facility] with bleeding from his adb wound. The pt has a trach, TPN, o2 per trach shield, and iv atb. Upon admission he went to the OR to stop the bleeding of his abd wound. The [facility] liason is here this am and the pt is agreeable to return there for complex wound care and respiratory mngt. [facility] updated the pt's cousin/carolmandy Guevara as well. Return to [facility] pending insurance authorization. The [facility] liason indicates that the pt and his cousin are aware that they are assisting with the pt's transition to cobra coverage. [employer] referral initiated for possible disability application and [place] medicaid application. Will ask for therapy evals and follow to assist with the pt's return to [facility].
--- NOTE | 2018-12-22 15:02 | NUR ---
WOUND FOLLOW UP: PT. WAS SEEN TODAY BY DR. SCOTT AND MYSELF. PT. ABDOMEN DRESSING IS C/D/I AT THIS TIME AND FISSUTAL MANAGEMENT IS MUCH BETTER TODAY. RECOMMENDATIONS: CONTINUE WITH CURRENT PLAN OF CARE. PT. AND STAFF NURSE WERE INSTRUCTED ON PLAN OF CARE.
[2018-12-22] MEDS ORDERED: NOVOLOG100 UNIT/1 SUBQ (15:17)
[2018-12-22] MEDS ORDERED: FLUCONAZOL200 MG/105 IVPB (15:17)
[2018-12-22] MEDS ORDERED: METOPROLOL5 MG/5 M2 IV PUSH (15:22)
--- NOTE | 2018-12-22 17:07 | NUR ---
PT ALERT AND ORIENTED TIMES FOUR. VSS, TRACH 35%FI02 SATS 100%, ST ON TELE, TPN, INFUSING PER ORDER. MOREIRA TO DD. ABDOMINAL WOUND DRESSING CHANGED MEDIUM AMOUNT OF MORALES DRAINAGE NOTED. RED LUI IN PLACE. PT C/O PAIN PRN PAIN MEDICATION GIVEN WITH SOME RELEIF. WILL CONTINUE TO MONITOR.
--- NOTE | 2018-12-22 20:08 | NUR ---
[facility]ORT HERE AND PICKED UP PT TO TRANSFER TO [facility] AT 1845
--- NOTE | 2018-12-22 20:11 | NUR ---
[facility] CORRECTED TRANSPORT TIME FROM ABOVE ACTUALLY 1944 DISCHARGE TO [facility]
== END 2018-12-22 19:45 | DRG 919 ==
LOC: ER 04:09 → ICU 05:51 → 3W 05:51 → EROBS 05:51 → 3W 06:13 → ICU 06:29
PROVIDERS: Emergency Medicine; Internal Medicine; Nurse Practitioner; Pediatrics; ADMIT Hospitalist
PROC: 3E10X8Z Irrigation of Skin and Mucous Membranes using Irrigating Substance (ICD-10-PCS; principal; 2018-12-20)
PROC: 02HV33Z Insertion of Infusion Device into Superior Vena Cava, Percutaneous Approach (ICD-10-PCS; principal; 2018-12-20)
DX: T81.30XA Disruption of wound, unspecified, initial encounter (principal); K65.9 Peritonitis, unspecified; J86.9 Pyothorax without fistula; J18.9 Pneumonia, unspecified organism; K63.2 Fistula of intestine; J96.12 Chronic respiratory failure with hypercapnia; J96.11 Chronic respiratory failure with hypoxia; J98.11 Atelectasis; K91.840 Postprocedural hemorrhage of a digestive system organ or structure following a digestive system procedure; L02.211 Cutaneous abscess of abdominal wall; I50.9 Heart failure, unspecified; D64.9 Anemia, unspecified; E66.01 Morbid (severe) obesity due to excess calories; I11.0 Hypertensive heart disease with heart failure; I34.0 Nonrheumatic mitral (valve) insufficiency; Y83.8 Other surgical procedures as the cause of abnormal reaction of the patient, or of later complication, without mention of misadventure at the time of the procedure; E11.9 Type 2 diabetes mellitus without complications; E03.9 Hypothyroidism, unspecified; I48.91 Unspecified atrial fibrillation; F32.9 Major depressive disorder, single episode, unspecified; Z93.0 Tracheostomy status; Z79.899 Other long term (current) drug therapy; Y92.89 Other specified places as the place of occurrence of the external cause; Z68.35 Body mass index [BMI] 35.0-35.9, adult; Z90.49 Acquired absence of other specified parts of digestive tract
CPT/HCPCS: 10078